=== PATIENT | male | born 1955 | race Caucasian/White ===

== ENCOUNTER 2018-03-06 14:46 | Inpatient (IN) | payer MEDICAID, MEDICARE ==
[~2018-03-06] VITALS: Ht 175.3 cm; Wt 50.7 kg
[2018-03-06] MEDS ORDERED: DIPH,PERTUSS(ACELL),TET VAC/PF 0.5 ML IM-VACC ONE ×2 (15:00→17:24)
[2018-03-06 15:22] LABS: BASOPHILS # (AUTO) 0.02 x10^3/uL (0-0.1); BASOPHILS % (AUTO) 0 % (0-1); EOSINOPHILS # (AUTO) 0.03 x10^3/uL (0-0.4); EOSINOPHILS % (AUTO) 1 % (1-7); LYMPHOCYTES # (AUTO) 1.35 x10^3/uL (1-3.4); LYMPHOCYTES % (AUTO) 22 % (22-44); MD NO; MEAN CORPUSCULAR HEMOGLOBIN 34.4 pg (27.5-34.5); MEAN CORPUSCULAR HGB CONC 34.6 g/dL (33.2-36.2); MEAN CORPUSCULAR VOLUME 99.4 fL (81-97); MEAN PLATELET VOLUME 7.8 fL (7.4-10.4); MONOCYTES # (AUTO) 0.62 x10^3/uL (0.2-0.8); MONOCYTES % (AUTO) 10 % (2-9); NEUTROPHILS # (AUTO) 4.04 x10^3/uL (1.8-6.8); NEUTROPHILS % (AUTO) 67 % (42-75); PLATELET COUNT 270 x10^3/uL (130-400); RED BLOOD COUNT 3.84 x10^6/uL (4.38-5.82); RED CELL DISTRIBUTION WIDTH 12.5 % (9.4-14.8)
[2018-03-06] MEDS ORDERED: PLEASE ENTER ALLERGIES MC SCH (15:30)
[2018-03-06 15:34] LABS: ALBUMIN 3.7 g/dL (3.4-5.0); ANION GAP 14 mmol/L (5-15); CALCIUM 9.2 mg/dL (8.5-10.1); CHLORIDE 96 mmol/L (98-107); CREATININE 1.03 mg/dL (0.7-1.3)
[2018-03-06] MEDS ORDERED: POTASSIUM CHLORIDE 10% 40 MEQ/30 ML UDC PO ONE (16:00)
[2018-03-06 17:22] LABS: TROPONIN I < 0.015 ng/mL (0.000-0.045)
[2018-03-06] MEDS ORDERED: POTASSIUM CHLORIDE 20 MEQ TAB.ER.PRT ONE (17:24)
[2018-03-06] MEDS ORDERED: DOCUSATE 100 MG CAPSULE PO PRN (18:30)
[2018-03-06] MEDS ORDERED: ONDANSETRON 4 MG TABLET PO PRN (18:30)
[2018-03-06] MEDS ORDERED: NICOTINE 14MG/24 HR PATCH.TD24 TD SCH (18:30)
[2018-03-06] MEDS ORDERED: ACETAMINOPHEN 325 MG TABLET PO PRN (18:30)
[2018-03-06] MEDS ORDERED: LIDODERM 5% PATCH TD PRN (18:30)
[2018-03-06] MEDS ORDERED: DIPHENHYDRAMINE 25 MG CAPSULE PO PRN (18:30)
[2018-03-06 18:40] VITALS: BP 118/77
[2018-03-06 18:44] VITALS: BP 118/77
[2018-03-06 19:52] VITALS: BP 111/73
[2018-03-06] MEDS ORDERED: NAPR-685 PO (20:28)
[2018-03-06 21:51] VITALS: BP 98/64
[2018-03-07] VITALS (7 sets, daily range): BP systolic 85–118; BP diastolic 49–72
[2018-03-07 05:24] LABS: CHOL/HDL RATIO 2.5; LDL/HDL RATIO 1.3 (0.5-3.0)
[2018-03-07] MEDS ORDERED: ASPIRIN 81 MG TABLET CHEW PO/NG SCH (09:00)
[2018-03-07] MEDS ORDERED: MECL25TA4 PO (16:48)
== END 2018-03-07 17:54 | disposition home or self-care (01) | DRG 74 ==
LOC: ED 17:46 → EDIP 17:47 → 5SO 18:40
PROVIDERS: ADMIT Internal Medicine; ATTEND Family Medicine
PROC: 0JQ13ZZ Repair Face Subcutaneous Tissue and Fascia, Percutaneous Approach (ICD-10-PCS; principal; 2018-03-06)
DX: G90.9 Disorder of the autonomic nervous system, unspecified (principal); G96.0 Cerebrospinal fluid leak; S01.112A Laceration without foreign body of left eyelid and periocular area, initial encounter; R55 Syncope and collapse; M19.90 Unspecified osteoarthritis, unspecified site; D18.1 Lymphangioma, any site; D64.9 Anemia, unspecified; E87.6 Hypokalemia; F17.210 Nicotine dependence, cigarettes, uncomplicated; I10 Essential (primary) hypertension; I65.23 Occlusion and stenosis of bilateral carotid arteries; M50.321 Other cervical disc degeneration at C4-C5 level; W18.39XA Other fall on same level, initial encounter; Y93.89 Activity, other specified; Y92.511 Restaurant or cafe as the place of occurrence of the external cause; Y99.8 Other external cause status
CPT/HCPCS: 36415; 70450; 70551; 72125; 80048; 80061; 82040; 82962; 84484; 85025; 90471; 90715; 93005; 93306; 93880; 99285; G0378; 92523-GN